=== PATIENT | female | born 1950 | race Caucasian/White ===

== ENCOUNTER → 2019-02-11 | Outpatient (CLI) | payer MEDICARE, OTHER ==
[2019-02-11] VITALS (13 sets, daily range): BP systolic 100–167; BP diastolic 58–83; PULSE 83–113
[~2019-02-11] MED LIST: CELEBREX 200MG200 MG PO; FLONASEALLERGY NS; PROTONIX20 MG PO; ULTRAM 50MG TAB50 MG PO; ZYRTEC 10MG10 MG PO
--- NOTE | 2019-02-11 11:10 | NUR ---
PT BROUGHT INTO THE CT ROOM, PLACED ON THE TABLE. MONITORING EQUIPMENT PLACED ON PT. IMAGES TAKEN AND SENT.
--- NOTE | 2019-02-11 11:20 | NUR ---
PT DOING VERY WELL. HOLDING HAND FOR COMFORT. DR JADE TALKED THE PT THROUGHT THE WHOLE PROCEDURE
--- NOTE | 2019-02-11 11:25 | NUR ---
PROCEDURE DONE. MONITORING EQUIPMENT REMOVED. PT TAKEN TO RAD HOLDING IN WHEELCHAIR. SITE IS CDI TO RIGHT ABDOMEN SITE
--- NOTE | 2019-02-11 13:43 | NUR ---
PT TAKEN TO LOBBY IN WHEELCHAIR. ARRIVES TO PROCESS IMPROVEMENT CONSULTANT PT
== END ==
LOC: COL.RAD 10:00
DX: C18.9 Malignant neoplasm of colon, unspecified (principal)
CPT/HCPCS: 32109